=== PATIENT | female | born 1945 | race Caucasian/White ===

== ENCOUNTER 2016-08-30 06:30 | Inpatient (IN) | payer MEDICARE, MEDICAID ==
[~2016-08-30] VITALS: Ht 167.6 cm; Wt 72.6 kg
[2016-08-30] VITALS (11 sets, daily range): BP systolic 105–133; BP diastolic 63–82
--- NOTE | 2016-08-30 04:47 | History and Physical Report ---
DATE OF ADMISSION: 08/30/2016 CHIEF COMPLAINT: Degenerative fibroid lower abdominal pain and involuntary loss of urine . HISTORY OF PRESENT ILLNESS: The patient is a 71-year-old with lower abdominal pain, especially with standing. An ultrasound on exam, she has multiple degenerative fibroids. She was counseled extensively that she can use pain medications, explained that fibroid uterus at her age may or may not be the cause of her pain. However, she would like to have total hysterectomy, bilateral salpingo-oophorectomy. Otherwise, her workup is complete and no other abnormalities were found to account for the pain. PAST SURGICAL HISTORY: None. ALLERGIES: None. SOCIAL HISTORY: The patient does not drink or smoke. She is an occasional social drinker. PHYSICAL EXAMINATION: HEAD AND NECK: Pupils are equally reactive to light. LUNGS: Clear to auscultation bilaterally. CARDIAC: Regular rate and rhythm, within normal limits. BREASTS: No dominant masses. No axillary adenopathy. ABDOMEN: Soft, nondistended, and nontender. Bimanual exam consistent with a 12-week fibroid uterus. Adnexa, not palpable. RECTAL: No masses. EXTREMITIES: No clubbing. No cyanosis. No edema. IMAGING STUDIES: Ultrasound on 04/2016 consistent with multiple fibroids 3 x 3, 4.5 x 3.5 and smaller. Bilateral ovaries within normal limits. ASSESSMENT: The patient is a 71-year-old with uterine fibroids, some of them appear to be degenerating and lower abdominal pain as well as urinary incontinence. PLAN: Plan is for total abdominal hysterectomy and bilateral salpingo-oophorectomy with bladder suspension (sling?) to be performed by Dr. Hopson. Stella Luu M.D. DR: CHEMO JOB#: [id number] CC: DEANNA
[2016-08-30] MEDS ORDERED: DIOVAN80 MG ORAL (06:58)
[2016-08-30] MEDS ORDERED: METOPROLOL TART25 MG ORAL (06:58)
[2016-08-30] MEDS ORDERED: cefOXitin Sod 1 GM in D5W 55 ML IVPB ONE (08:00)
--- NOTE | 2016-08-30 08:59 | Anethesia Preoperative Eval ---
Anesthesia Pre-op PMH/ROS General Date of Evaluation: Aug 30, 2016 Time of Evaluation: 09:27 Anesthesiologist: Velma ASA Score: ASA 2 Mallampati Score Class I : Soft palate, uvula, fauces, pillars visible Class II: Soft palate, uvula, fauces visible Class III: Soft palate, base of uvula visible Class IV: Only hard plate visible Mallampati Classification: Class II Surgeon: Ailyn Diagnosis: Abd Pain Surgical Procedure: CONNIE BSO, Vaginal Sling, Rectocele, Cystocele Repair Anesthesia History: none Family History: no anesthesia problems Allergies: Coded Allergies: CELECOXIB (Verified Allergy, Severe, rashes, 08/30/16) LEVOFLOXACIN (Verified Allergy, Severe, RASHES , 08/30/16) Medications: see eMAR Past Medical History Cardiovascular: Reports: HTN Gastrointestinal/Genitourinary: Reports: other - Fibroids PSxH Narrative: Laparoscopic Cholecystectomy Anesthesia Pre-op Phys. Exam Physician Exam Last Vital Signs Date Time Temp Pulse Resp B/P Pulse Ox O2 Delivery O2 Flow Rate FiO2 08/30/16 07:08 97.9 90 18 131/81 99 Room Air Constitutional: NAD Neurologic: CN 2-12 intact Cardiovascular: RRR Respiratory: CTA Gastrointestinal: S/NT/ND Airway Exam Mallampati Score: Class II MO: full ROM: full Teeth: intact Anesthesia Pre-op A/P Risk Assessment & Plan Assessment: ASA 2 Plan: GA, Spinal, Glidescope, BIS Status Change Before Surgery: No Pre-Antibiotics Dru Gram Cefoxitin IV Given Within 1 Hr of Incision: Yes Time Given: 10:01 Luciano Carreon MD Aug 30, 2016 08:59
--- NOTE | 2016-08-30 09:08 | Pre-Procedure Note/Attestation ---
Pre-Procedure Note/Attestation Complete Prior to Procedure Planned Procedure: not applicable Procedure Narrative: Cystocele and rectocele repair vaginal sling cystoscopy Indications for Procedure Pre-Operative Diagnosis: vaginal prolapce incontinence Attestation I attest that I discussed the nature of the procedure; its benefits; risks and complications; and alternatives (and the risks and benefits of such alternatives ), prior to the procedure, with the patient (or the patient's legal medical field representative). I attest that, if there was a reasonable possibility of needing a blood transfusion, the patient (or the patient's legal medical field representative) was given the [facility] standardized written summary, pursuant to the Evan Sandra Blood Safety Act ([place] Health and Safety Code # 1645, as amended). I attest that I re-evaluated the patient just prior to the surgery and that there has been no change in the patient's H&P, except as documented below: Cali Hopson MD Aug 30, 2016 09:09
--- NOTE | 2016-08-30 09:10 | Brief Operative Note ---
Immediate Post Operative Note Operative Note Pre-op Diagnosis: vaginal prolapce incontinence Procedure: cystocele and rectocele repair vaginal sling cystoscopy Post-op Diagnosis: same Post-op Diagnosis: same as pre-op Surgeon: Nas hopson Specimen: none Complications: none Condition: stable Implant(s) used?: No Cali Hopson MD Aug 30, 2016 09:10
[2016-08-30] MEDS ORDERED: cefOXitin 1gm Inj ONE (09:21)
[2016-08-30] MEDS ORDERED: Ropivacaine 2mg/ml Amp INJ ONE (09:21)
[2016-08-30] MEDS ORDERED: Morphine Sulfate PF 10 ML ONE (09:21)
[2016-08-30] MEDS ORDERED: Ropivacaine 5mg/ml Vial 20ml INJ ONE (09:28)
[2016-08-30] MEDS ORDERED: Surgicel 4in x 8in TOPIC ONE ×2 (09:28→09:43)
[2016-08-30] MEDS ORDERED: LR 1000ml 1,000 ML IVLG SCH (09:36)
--- NOTE | 2016-08-30 09:38 | Pre-Procedure Note/Attestation ---
Pre-Procedure Note/Attestation Complete Prior to Procedure Planned Procedure: bilateral Procedure Narrative: total abdominal hysterectomy, bilateral salpingoopherectomy Indications for Procedure Pre-Operative Diagnosis: degenerating fibroids Attestation I attest that I discussed the nature of the procedure; its benefits; risks and complications; and alternatives (and the risks and benefits of such alternatives ), prior to the procedure, with the patient (or the patient's legal hr representative). I attest that, if there was a reasonable possibility of needing a blood transfusion, the patient (or the patient's legal hr representative) was given the [facility] standardized written summary, pursuant to the Evan Sandra Blood Safety Act ([place] Health and Safety Code # 1645, as amended). I attest that I re-evaluated the patient just prior to the surgery and that there has been no change in the patient's H&P, except as documented below: MALI CABRERA Aug 30, 2016 09:38
--- NOTE | 2016-08-30 09:41 | Immediate Post-Op Evaluation ---
Immediate Post-Op Evalulation Immediate Post-Op Evalulation Procedure: CONNIE BSO, Vaginal Sling, Rectocele, Cystocele Repair Date of Evaluation: Aug 30, 2016 Time of Evaluation: 12:29 IV Fluids: 1400 LR Blood Products: 0 Estimated Blood Loss: 50 Urinary Output: 200 Blood Pressure Systolic: 128 Blood Pressure Diastolic: 72 Pulse Rate: 97 Respiratory Rate: 16 O2 Sat by Pulse Oximetry: 100 Temperature (Fahrenheit): 98 Pain Score (1-10): 2 Nausea: No Vomiting: No Complications 0 Patient Status: awake, reacts, patent, extubated, none Hydration Status: adequate Dru Gram Cefoxitin IV Given Within 1 Hr of Incision: Yes Time Given: 10:01 Luciano Carreon MD Aug 30, 2016 09:41
--- NOTE | 2016-08-30 09:42 | 48 Hour Post Anesthesia Eval ---
Post Anesthesia Evaluation Procedure: CONNIE BSO, Vaginal Sling, Rectocele, Cystocele Repair Date of Evaluation: Aug 30, 2016 Time of Evaluation: 14:51 Blood Pressure Systolic: 134 0: 73 Pulse Rate: 91 Respiratory Rate: 18 Temperature (Fahrenheit): 98.4 O2 Sat by Pulse Oximetry: 100 Airway: patent Nausea: No Vomiting: No Pain Intensity: 2 Hydration Status: adequate Cardiopulmonary Status: Stable Mental Status/LOC: patient returned to baseline Follow-up Care/Observations: 0 Post-Anesthesia Complications: 0 Follow-up care needed: N/A Luciano Carreon MD Aug 30, 2016 09:41
[2016-08-30] MEDS ORDERED: Bupivacaine w/Epi 0.25% 30ml Vial INJ ONE (09:43)
[2016-08-30] MEDS ORDERED: Meperidine 25mg/ml Inj IV PRN (09:45)
[2016-08-30] MEDS ORDERED: Oxycodone/Acetaminophen 5-325 ORAL PRN (09:45)
[2016-08-30] MEDS ORDERED: LORazepam Inj 2mg/ml 1ml IV PRN (09:45)
[2016-08-30] MEDS ORDERED: Metoclopramide 10mg/2ml Inj IVP PRN (09:45)
[2016-08-30] MEDS ORDERED: Midazolam 2mg/2ml Inj IVP PRN (09:45)
[2016-08-30] MEDS ORDERED: Atropine Inj 1mg/10ml Syr IV PRN (09:45)
[2016-08-30] MEDS ORDERED: Labetalol 5mg/ml 20ml vial IV PRN (09:45)
[2016-08-30] MEDS ORDERED: DiphenhydrAMINE 50mg/ml Inj IVP PRN (09:45)
[2016-08-30] MEDS ORDERED: Norco 5mg/325mg tab ORAL PRN (09:45)
[2016-08-30] MEDS ORDERED: fentaNYL 100 mcg/2 mL IV PRN (09:45)
[2016-08-30] MEDS ORDERED: Norco 7.5mg/325mg tab ORAL PRN (09:45)
[2016-08-30] MEDS ORDERED: ProvayBlue 5mg/ml 10ml amp INJ ONE (10:00)
[2016-08-30] MEDS ORDERED: Bacitracin 50000 Units Vial ONE (11:21)
--- NOTE | 2016-08-30 11:41 | Brief Operative Note ---
Immediate Post Operative Note Operative Note Chief Complaint: sumptomatic fibroid Pre-op Diagnosis: symptomatic fibroid Procedure: CONNIE BSO Post-op Diagnosis: same as pre-op Surgeon: Stella salgado MD Grinder Hand: Marlo alexander MD Anesthesiologist: Luciano Carreon MD Anesthesia: general Specimen: yes - uterus bilateral adnexea Complications: none Condition: stable Estimated Blood Loss: volume - 50 Drains: none Implant(s) used?: No MARLO ALEXANDER Aug 30, 2016 11:41
[2016-08-30] MEDS: Hydromorphone 0.5mg/0.5ml inj IVP PRN ×3 (12:40→13:24)
[2016-08-30] MEDS ORDERED: HYDROmorphone 1mg/ml Carpuject SUBQ PRN (16:00)
[2016-08-30] MEDS: D5 1/2NS w/KCl 20mEq 1,000 ML IV SCH (17:34)
[2016-08-30] MEDS: ceFAZolin sod 1 GM in D5W 55 ML IV SCH (17:35)
[2016-08-30] MEDS: Docusate 100mg cap ORAL SCH (17:36)
[2016-08-31] MEDS: Ketorolac 30mg Inj IV PRN ×4 (01:08→19:58)
[2016-08-31] MEDS: ceFAZolin sod 1 GM in D5W 55 ML IV SCH (02:03)
[2016-08-31] MEDS: D5 1/2NS w/KCl 20mEq 1,000 ML IV SCH ×3 (02:07→08:00)
[2016-08-31 05:01] VITALS: BP 102/57
[2016-08-31 07:19] LABS: BASOPHILS % (AUTO) 0.2 % (0.0-2.0); LYMPHOCYTES % (AUTO) 11.5 % (20.0-45.0); MEAN CORPUSCULAR HGB CONC 32.9 G/DL (32.0-36.0); MEAN CORPUSCULAR VOLUME 82 FL (80-99); MEAN PLATELET VOLUME 7.6 FL (6.5-10.1); NEUTROPHILS % (AUTO) 79.3 % (45.0-75.0); PLATELET COUNT 194 K/UL (150-450); RED BLOOD COUNT 4.25 M/UL (4.20-5.40); RED CELL DISTRIBUTION WIDTH 11.8 % (11.6-14.8); WHITE BLOOD COUNT 12.4 K/UL (4.8-10.8)
[2016-08-31] MEDS ORDERED: Propofol 10mg/ml 20ml IV ONE (07:30)
[2016-08-31] MEDS ORDERED: Neostigmine 1mg/ml 10ml Inj ONE (07:30)
[2016-08-31] MEDS ORDERED: LR 1000ml ONE (07:30)
[2016-08-31] MEDS ORDERED: Lidocaine 1% MPF 10mg/ml 5ml ONE (07:30)
[2016-08-31] MEDS ORDERED: Dexamethasone 4mg/ml vial ONE (07:30)
[2016-08-31] MEDS ORDERED: Midazolam 2mg/2ml Inj ONE (07:30)
[2016-08-31] MEDS ORDERED: Sterile Water Irrig 1000ml IRRIG ONE (07:30)
[2016-08-31] MEDS ORDERED: NS Irrig 1000ml ONE (07:30)
[2016-08-31] MEDS ORDERED: Alfentanil 2ml Inj ONE (07:30)
[2016-08-31] MEDS ORDERED: Zemuron 50mg/5ml Inj IV ONE (07:30)
[2016-08-31] MEDS ORDERED: Glycopyrrolate 0.2mg/ml 1ml Vial ONE (07:30)
[2016-08-31 07:46] LABS: ANION GAP 10 (5-15); CARBON DIOXIDE 27 mEQ/L (20-30); CHLORIDE 101 mEQ/L (98-107); CREATININE 0.7 mg/dL (0.5-0.9); HEMOLYSIS 5; POTASSIUM 4.7 mEQ/L (3.4-4.9); SODIUM 138 mEQ/L (135-145)
[2016-08-31 08:00] VITALS: BP 101/65
[2016-08-31] MEDS: Metoprolol 25mg tab ORAL SCH (09:00)
[2016-08-31] MEDS: Docusate 100mg cap ORAL SCH ×2 (09:21→19:19)
--- NOTE | 2016-08-31 10:23 | General Surgery Progress Note ---
General Surgery-Progress Note Subjective Symptoms: improved, tolerating diet Objective Last 24 Hour Vital Signs Date Time Temp Pulse Resp B/P Pulse Ox O2 Delivery O2 Flow Rate FiO2 08/31/16 09:00 101/65 08/31/16 09:00 88 101/65 08/31/16 08:00 97.9 88 18 101/65 96 Room Air 08/31/16 05:01 98.2 90 18 102/57 96 Nasal Cannula 3.0 08/30/16 14:30 97.5 73 16 114/65 97 Nasal Cannula 2.0 08/30/16 14:05 98.6 86 18 105/63 98 Nasal Cannula 3.0 08/30/16 13:50 81 18 129/63 98 Nasal Cannula 3.0 08/30/16 13:46 98.4 08/30/16 13:46 98.4 08/30/16 13:41 87 18 110/63 98 Nasal Cannula 3.0 08/30/16 13:24 79 18 118/74 98 Simple Mask 8.0 08/30/16 12:55 76 18 124/75 98 Simple Mask 8.0 100 08/30/16 12:40 77 18 133/75 98 Simple Mask 8.0 100 08/30/16 12:28 99 18 132/75 100 Simple Mask 8.0 100 08/30/16 12:23 75 18 128/74 100 Simple Mask 8.0 100 08/30/16 12:21 91 18 100 08/30/16 12:20 97 16 100 08/30/16 12:18 98.0 99 18 129/82 100 Simple Mask 8.0 100 I&O Intake and Output 08/30/16 08/31/16 19:00 07:00 Intake Total 2525 ml 990 ml Output Total 450 ml 450 ml Balance 2075 ml 540 ml Intake Oral 240 ml IV Total 2525 ml 750 ml Output Urine Total 400 ml 450 ml Estimated Blood Loss 50 ml # Voids 1 Wound: clean, dry, intact Drains: none Cardiovascular: RSR Respiratory: clear Abdomen: soft, flat, non-tender, present bowel sounds Extremities: no edema, no tenderness, no cyanosis Laboratory Tests Test 08/31/16 06:35 White Blood Count 12.4 K/UL (4.8-10.8) H Red Blood Count 4.25 M/UL (4.20-5.40) Hemoglobin 11.5 G/DL (12.0-16.0) L Hematocrit 34.8 % (37.0-47.0) L Mean Corpuscular Volume 82 FL (80-99) Mean Corpuscular Hemoglobin 27.0 PG (27.0-31.0) Mean Corpuscular Hemoglobin Concent 32.9 G/DL (32.0-36.0) Red Cell Distribution Width 11.8 % (11.6-14.8) Platelet Count 194 K/UL (150-450) Mean Platelet Volume 7.6 FL (6.5-10.1) Neutrophils (%) (Auto) 79.3 % (45.0-75.0) H Lymphocytes (%) (Auto) 11.5 % (20.0-45.0) L Monocytes (%) (Auto) 9.0 % (1.0-10.0) Eosinophils (%) (Auto) 0.0 % (0.0-3.0) Basophils (%) (Auto) 0.2 % (0.0-2.0) Sodium Level 138 mEQ/L (135-145) Potassium Level 4.7 mEQ/L (3.4-4.9) Chloride Level 101 mEQ/L (98-107) Carbon Dioxide Level 27 mEQ/L (20-30) Anion Gap 10 (5-15) Blood Urea Nitrogen 14 mg/dL (7-23) Creatinine 0.7 mg/dL (0.5-0.9) Estimat Glomerular Filtration Rate mL/min (>60) Glucose Level 124 mg/dL (74-106) H Calcium Level 9.0 mg/dL (8.6-10.2) Assessment Post-op Diagnosis s/p hysterectomy BSO/ sling Additional Comments keep Wolfe/ regular diet MALI CABRERA Aug 31, 2016 10:23
[2016-08-31] MEDS ORDERED: DiphenhydrAMINE 50mg/ml Inj IVP PRN (10:30)
[2016-08-31 12:00] VITALS: BP 108/66
[2016-08-31 16:00] VITALS: BP 107/68
[2016-08-31 19:00] VITALS: BP 122/80
[2016-08-31] MEDS ORDERED: Oxycodone/Acetaminophen 5-325 ORAL PRN (21:15)
[2016-08-31] MEDS ORDERED: Ketorolac 30mg Inj IV PRN (21:45)
[2016-09-01] MEDS ORDERED: HYDROmorphone 1mg/ml Carpuject SUBQ PRN (01:00)
[2016-09-01] MEDS ORDERED: Oxycodone/Acetaminophen 5-325 ORAL PRN (01:15)
[2016-09-01] MEDS ORDERED: Ketorolac 30mg Inj IV PRN (02:30)
[2016-09-01 04:00] VITALS: BP 129/80
[2016-09-01 08:00] VITALS: BP 134/84
[2016-09-01] MEDS: Docusate 100mg cap ORAL SCH (09:36)
[2016-09-01] MEDS: Metoprolol 25mg tab ORAL SCH (09:37)
[2016-09-01 12:00] VITALS: BP 121/76
[2016-09-01] MEDS ORDERED: PERCOCET 5-3251 EACH ORAL (12:22)
[2016-09-01] MEDS ORDERED: IBUPROFEN600 MG ORAL (12:23)
--- NOTE | 2016-09-04 07:45 | Discharge Summary ---
[facility] ([facility])Nneka TRISHA 09/04/16 0745: Discharge Summary Hospital Course Date of Admission Aug 30, 2016 at 06:30 Date of Discharge Sep 01, 2016 at 14:40 Admitting Diagnosis symptomatic fibroid, uterine prolapse Reason for Hospitalization: elective surgery HPI Chelsea Powell , 71 year old female , was admitted on Aug 30, 2016 at 06:30 for symptomatic uterine fibroid and urinary prolapse for elective surgery Consultations dr Combs - urology surgeon dr Holt - RN CORRECTIONAL surgery Procedures 08/30/16 1. hysterectomy, BSO, cystocele and rectocele repair, cystoscopy, vaginal sling Hospital Course 71 y/old female with symptomatic fibroid and urinary incontinence, cystocele and rectocele admitted for elective surgery Surgery was performed on 08/30/16 1. hysterectomy, bilateral salpingo-oophorectomy - dr Holt 2. cystocele adn rectocele repair, cystoscopy, vaginal sling - dr Hopson course of recovery was uneventful pain controlled ambulates initially with Wolfe discontinued Wolfe, rukhsana to void, without difficulties tolerates diet VSS BP controlled with current regimen stable fro dc, cleared by both surgeons fup as outpatient with dr Luu and dr Hopson as specified in their instructions to the patient Discharge Medications Continued Medications: Ibuprofen* (Motrin*) 600 Mg Tablet 600 MG ORAL Q6H PRN for For Pain, #30 TAB Metoprolol Tartrate* (Metoprolol Tartrate*) 25 Mg Tablet 25 MG ORAL DAILY, TAB Oxycodone/Acetaminophen 5-325* (Percocet 5-325 Mg Tablet*) 1 Each Tablet 1 TAB ORAL Q4H PRN for For Pain, TAB Valsartan (Diovan) 80 Mg Tab 80 MG ORAL DAILY, TAB Discharge Condition Upon Discharge: stable Discharge Disposition Patient was discharged to Home (01) Discharge Diagnoses: (1) Status post hysterectomy with oophorectomy (2) S/P cystoscopy (3) Urinary incontinence (4) Rectocele (5) Cystocele (6) HTN (hypertension) (7) Fibroid (8) Vaginal prolapse MALI LUU 10/13/16 0754: Discharge Summary Hospital Course Consultations surgery was performed by dr Luu/ dr Holt was an orthopaedic physician assistant Discharge Medications Continued Medications: Ibuprofen* (Motrin*) 600 Mg Tablet 600 MG ORAL Q6H PRN for For Pain, #30 TAB Metoprolol Tartrate* (Metoprolol Tartrate*) 25 Mg Tablet 25 MG ORAL DAILY, TAB Oxycodone/Acetaminophen 5-325* (Percocet 5-325 Mg Tablet*) 1 Each Tablet 1 TAB ORAL Q4H PRN for For Pain, TAB Valsartan (Diovan) 80 Mg Tab 80 MG ORAL DAILY, TAB Alberto ([facility]),Nneka RICO Sep 04, 2016 07:45 MALI LUU Oct 13, 2016 07:54
--- NOTE | 2016-09-04 15:57 | Operative Note - Dictated ---
DATE OF OPERATION: 08/30/2016 PROCEDURE: Total abdominal hysterectomy and bilateral salpingo-oophorectomy. SURGEON: Stella Luu M.D. CAUSTICS LOADER: Marlo Holt M.D. ANESTHESIA: General endotracheal, spinal. ESTIMATED BLOOD LOSS: 50 mL. COMPLICATIONS: None. PROCEDURE IN DETAIL: After ensuring informed consent, the patient was taken to the operating room, where general anesthesia was induced. The patient was sterilely prepped and draped, and placed in dorsal lithotomy position. A small low transverse incision was made suprapubically and carried down to the level of the fascia with a Bovie. The fascia was nicked in the midline and the incision was extended laterally on both sides. Next, the fascia was tented up and both bluntly and sharply dissected off of the underlying rectus muscles. Rectus muscles were split in the midline. Peritoneum was identified, tented up, and entered sharply. Next, the pelvis was explored. There was a large fibroid uterus and bilateral normal tubes and ovaries. Next, Tan retractor was placed, and bowel was packed away with three laps. Next, uterus was grasped with a tenaculum, round ligament was identified on the right side, grasped with Wing's, transected, and suture ligated. Next, this was repeated on the left side. Vesicouterine peritoneum was entered and bladder was both sharply and bluntly resected off of the lower uterine segment and cervix. Next, the window was made in the right broad ligament. A Fercho clamp x2 was placed through the window on the right side, and the infundibulopelvic ligament was skeletonized, grasped with two Fercho's, resected, and the left pedicle was doubly ligated on the right side. Next, similar procedure was repeated on the left. Mainly, infundibulopelvic was skeletonized. Here, a window being made in the broad ligament, grasped with 2 Fercho clamps, transected, and doubly ligated. Next, the uterine artery on the left was skeletonized, grasped with a slightly curved Zeppelin, tagged, and suture ligated. Then, the uterine on the right side was also transected and ligated. Next, vesicouterine peritoneum was further removed from the cervix and using straight Zeppelin clamp, the cardinal ligament was grasped, cut, and suture ligated lateral to the cervix until the lateral angle was reached, which was grasped with a curved Zeppelin. Then, a cut was made into the vagina and cervix where the uterus was amputated using Thomas scissors. Both vaginal angles were grasped and ligated. Next, vagina was closed using 0 Vicryl. All pedicles were inspected, and excellent hemostasis was assured. Pelvis was irrigated. Laps were removed. Next, peritoneum was closed with 2.0 Vicryl. Fascia was closed with 0 Vicryl. Subcutaneous tissue was closed with 3-0 plain. Subcuticular was closed with 4-0 Vicryl and Steri-Strips were placed on the incision. At the end of the procedure, all instruments and lap count was correct x3. Stella Luu M.D. DR: TORO JOB#: [id number] CC: DEANNA
--- NOTE | 2016-09-04 22:07 | Operative Note - Dictated ---
DATE OF OPERATION: 08/30/2016 PREOPERATIVE DIAGNOSES: 1. Vaginal prolapse. 2. Enlarged uterus. 3. Stress and urge incontinence. OPERATION: 1. Transvaginal cystocele repair. 2. Rectocele repair. 3. Vaginal wall sling cystoscopy. POSTOPERATIVE DIAGNOSES: 1. Vaginal prolapse. 2. Enlarged uterus. 3. Stress and urge incontinence. SURGEON: Cali Hopson M.D. ANESTHESIA: General. FINDINGS: Prolapsed vaginal urethra. INDICATIONS FOR SURGERY: The patient has severely enlarged uterine fibroids and was scheduled for hysterectomy combined with transvaginal cystocele repair, rectocele repair, and vaginal sling. The patient understands the nature of the procedure as well as all potential complications, signed a consent. She was brought to the operating room, placed in the lithotomy position, and prepped and draped in standard fashion under general anesthesia. Anterior incision was made. The vagina was from the bladder. Pubocervical muscles were reapproximated with interrupted 2-0 Vicryl sutures reducing central defect . A mid urethral sling was placed in the left indwelling with non tension. Rectocele repair was repaired in the standard fashion with the reapproximation of the perirectal fascia with interrupted 2-0 Vicryl sutures. Vagina was trimmed and closed. Cystoscopy was normal. Sponge count and instrument count was correct. Vaginal packing. The patient transferred to the recovery room in a stable condition. No evidence of complication. Cali Hopson M.D. DR: TRACY JOB#: [id number] CC:
== END 2016-09-01 14:40 | disposition home or self-care (01) | DRG 743 ==
LOC: SDSOVERFLO 06:30 → 3E 15:33
PROC: 0USG0ZZ Reposition Vagina, Open Approach (ICD-10-PCS; principal; 2016-08-30 09:30)
PROC: 0UT70ZZ Resection of Bilateral Fallopian Tubes, Open Approach (ICD-10-PCS; principal; 2016-08-30 09:30)
PROC: 0UT90ZZ Resection of Uterus, Open Approach (ICD-10-PCS; principal; 2016-08-30 09:30)
PROC: 0UTC0ZZ Resection of Cervix, Open Approach (ICD-10-PCS; principal; 2016-08-30 09:30)
PROC: 0JQC0ZZ Repair Pelvic Region Subcutaneous Tissue and Fascia, Open Approach (ICD-10-PCS; principal; 2016-08-30 09:30)
PROC: 0UT20ZZ Resection of Bilateral Ovaries, Open Approach (ICD-10-PCS; principal; 2016-08-30 09:30)
DX: D25.9 Leiomyoma of uterus, unspecified (principal); I10 Essential (primary) hypertension; N81.10 Cystocele, unspecified; N81.6 Rectocele; R32 Unspecified urinary incontinence
CPT/HCPCS: 36415; 80048; 85025; 86850; 86900; 86901; 87081; 94003; 94150; J2180; J2250; J2405; J2710; J3490

== ENCOUNTER → 2017-04-18 | Day surgery (SDC) | payer MEDICARE, MEDICAID ==
[2017-04-18] VITALS (9 sets, daily range): BP systolic 123–140; BP diastolic 78–86
[~2017-04-18] VITALS: Ht 162.6 cm; Wt 76.2 kg
[~2017-04-18] MED LIST: BYSTOLIC2.5 MG ORAL; D5 1/2NS 1,000 ML IV SCH; DIOVAN80 MG ORAL; Dexamethasone 4mg/ml vial ONE; DiphenhydrAMINE 50mg/ml Inj IVP PRN; ELMIRON100 MG ORAL; HYDROmorphone 1mg/ml Carpuject SUBQ PRN; Hydromorphone 0.5mg/0.5ml inj IVP PRN; IBUPROFEN600 MG ORAL; Iothalamate Meglumine 60% 30ML INJ ONE; Ketorolac 30mg Inj ONE; LORazepam Inj 2mg/ml 1ml IV PRN; LR 1000ml 1,000 ML IVLG SCH; LR 1000ml ONE; Lidocaine 1% MPF 10mg/ml 5ml ONE; METOPROLOL TART25 MG ORAL; Metoclopramide 10mg/2ml Inj IVP PRN; Metoclopramide 10mg/2ml Inj ONE; NITROFURANTOIN100 MG PO; NS Irrig 1000ml ONE; NS Irrig 2000ml IRRIG ONE; Norco 5mg/325mg tab ORAL PRN; PERCOCET 5-3251 EACH ORAL; Propofol 200mg/20ml IV ONE; Sterile Water Irrig 1000ml IRRIG ONE; Tylenol #3 tab (300mg/30mg) ORAL PRN; ceFAZolin 1gm/50ml Premix 50 ML IV ONE; fentaNYL 100 mcg/2 mL IV ONE; fentaNYL 100 mcg/2 mL IV PRN
--- NOTE | 2017-04-18 12:40 | Pre-Procedure Note/Attestation ---
Pre-Procedure Note/Attestation Complete Prior to Procedure Planned Procedure: left Procedure Narrative: RIRS ESWL Stent placement Indications for Procedure Pre-Operative Diagnosis: left renal stone Attestation I attest that I discussed the nature of the procedure; its benefits; risks and complications; and alternatives (and the risks and benefits of such alternatives ), prior to the procedure, with the patient (or the patient's legal customer counter representative). I attest that, if there was a reasonable possibility of needing a blood transfusion, the patient (or the patient's legal customer counter representative) was given the [facility] standardized written summary, pursuant to the Evan Sandra Blood Safety Act ([place] Health and Safety Code # 1645, as amended). I attest that I re-evaluated the patient just prior to the surgery and that there has been no change in the patient's H&P, except as documented below: Cali Hopson MD Apr 18, 2017 12:40
--- NOTE | 2017-04-18 13:14 | Anethesia Preoperative Eval ---
Anesthesia Pre-op PMH/ROS General Date of Evaluation: Apr 18, 2017 Anesthesiologist: Mikal ASA Score: ASA 2 Mallampati Score Class I : Soft palate, uvula, fauces, pillars visible Class II: Soft palate, uvula, fauces visible Class III: Soft palate, base of uvula visible Class IV: Only hard plate visible Mallampati Classification: Class II Surgeon: Mark Anthony Diagnosis: Kidney stones Surgical Procedure: Left ESWL, left retrograde intrarenal sx, left ureter stent placement Anesthesia History: none Family History: no anesthesia problems Allergies: Coded Allergies: CELECOXIB (Verified Allergy, Severe, rashes, 08/30/16) LEVOFLOXACIN (Verified Allergy, Severe, RASHES , 08/30/16) Medications: see eMAR Past Medical History Cardiovascular: Reports: HTN, other - HLD, Denies: CAD, SD, valve dz, arrhythmia Pulmonary: Denies: asthma, COPD, SHARDA, other Gastrointestinal/Genitourinary: Reports: GERD, Denies: CRI, ESRD, other Neurologic/Psychiatric: Denies: dementia, CVA, depression/anxiety, TIA, other Endocrine: Denies: DM, hypothyroidism, steroids, other HEENT: Denies: cataract (L), cataract (R), glaucoma, [place] (L), [place] (R), other Hematology/Immune: Denies: anemia, DVT, bleeding disorder, other Musculoskeletal/Integumentary: Reports: OA PSxH Narrative: lap arun, lap appy, CONNIE, bladder sling Anesthesia Pre-op Phys. Exam Physician Exam Last Vital Signs Date Time Temp Pulse Resp B/P (MAP) Pulse Ox O2 Delivery O2 Flow Rate FiO2 04/18/17 11:02 97.7 82 20 127/86 97 Room Air Constitutional: NAD Cardiovascular: RRR Respiratory: CTA Airway Exam Mallampati Score: Class II MO: full ROM: full Anesthesia Pre-op A/P Labs see chart Studies Pre-op Studies: EKG - sr Risk Assessment & Plan Assessment: ASA II Plan: GA Status Change Before Surgery: No Pre-Antibiotics Drug: Anceg 1g Given Within 1 Hr of Incision: Yes SHERRI CHARLES M.D. Apr 18, 2017 13:14
--- NOTE | 2017-04-18 13:18 | Immediate Post-Op Evaluation ---
Immediate Post-Op Evalulation Immediate Post-Op Evalulation Procedure: Left ESWL, left ureter stent placement Date of Evaluation: Apr 18, 2017 Time of Evaluation: 14:46 IV Fluids: 1L Blood Products: 0 Estimated Blood Loss: 1 Urinary Output: 0 Blood Pressure Systolic: 124 Blood Pressure Diastolic: 78 Pulse Rate: 73 Respiratory Rate: 16 O2 Sat by Pulse Oximetry: 100 Temperature (Fahrenheit): 97.3 Pain Score (1-10): 0 Nausea: No Vomiting: No Complications 0 Patient Status: awake, reacts, patent, none Hydration Status: adequate Drug: Ancef 1g Given Within 1 Hr of Incision: Yes SHERRI CHARLES M.D. Apr 18, 2017 13:18
--- NOTE | 2017-04-18 13:18 | 48 Hour Post Anesthesia Eval ---
Post Anesthesia Evaluation Procedure: Left ESWL, left ureter stent placement Date of Evaluation: Apr 18, 2017 Airway: patent Nausea: No Vomiting: No Pain Intensity: 1 Hydration Status: adequate Cardiopulmonary Status: at baseline Mental Status/LOC: patient returned to baseline Post-Anesthesia Complications: 0 Follow-up care needed: ready to discharge SHERRI CHARLES M.D. Apr 18, 2017 13:18
--- NOTE | 2017-04-18 14:32 | Brief Operative Note ---
Immediate Post Operative Note Operative Note Pre-op Diagnosis: left renal stone Procedure: ESWL RIRS left stent placement Post-op Diagnosis: same Post-op Diagnosis: same as pre-op Anesthesia: general Specimen: none Complications: none Condition: stable Fluids: 500 Estimated Blood Loss: minimal Drains: none Implant(s) used?: No Cali Hopson MD Apr 18, 2017 14:32
--- NOTE | 2017-04-24 07:15 | Operative Note - Dictated ---
DATE OF OPERATION: 04/18/2017 PREOPERATIVE DIAGNOSIS: Left ureteral stone. POSTOPERATIVE DIAGNOSIS: Left ureteral stone. OPERATION: Extracorporeal shock wave lithotripsy of the left renal stone combined with retrograde intrarenal surgery, double J-stent placement. SURGEON: Cali Hopson M.D. ANESTHESIA: General. FINDINGS: Left renal stone. INDICATIONS FOR SURGERY: The patient had intermittent pain in the left flank. A CT urogram twice showed a 7 mm stone in the upper calyx of the left kidney. Treatment options were explained to her in great length including all potential complications. She signed the consent. DESCRIPTION OF PROCEDURE: She was brought to the operating room, placed in lithotomy position, prepped and draped in standard fashion. Under general anesthesia, cystoscope was introduced into the bladder. Bladder was normal. Left ureter was strangulated. Then, guidewire was placed into the left kidney. Over the guidewire, a flexible ureteroscope was placed and stone was found in the ureteral upper calyx of the left kidney. Left extracorporeal shockwave lithotripsy was done and the stone was slightly fragmented in multiple shocks, with 2000 shocks at 9 kilovolts. As a result, a double J stent, 24 x 6, was placed and left indwelling. The patient tolerated the procedure well. Sponge count and instrument count was correct. Cali Hopson M.D. DR: Nicole JOB#: [id number] CC: DEANNA
== END | disposition home or self-care (01) ==
LOC: SUR 10:17
DX: N20.0 Calculus of kidney (principal)
CPT/HCPCS: 50590; 52332; J0690; J1100; J1885; J1940; J2405; J2704; J2765; J3010; J7120; 94003; 94150

== ENCOUNTER 2018-03-06 07:30 | Inpatient (IN) | payer MEDICARE, MEDICAID ==
[2018-03-06] VITALS (17 sets, daily range): BP systolic 97–164; BP diastolic 60–95
[~2018-03-06] VITALS: Ht 167.6 cm; Wt 71.7 kg
[~2018-03-06 07:30] MED LIST changes: -D5 1/2NS 1,000 ML IV SCH; -Dexamethasone 4mg/ml vial ONE; -DiphenhydrAMINE 50mg/ml Inj IVP PRN; -HYDROmorphone 1mg/ml Carpuject SUBQ PRN; -Hydromorphone 0.5mg/0.5ml inj IVP PRN; -Iothalamate Meglumine 60% 30ML INJ ONE; -Ketorolac 30mg Inj ONE; -LORazepam Inj 2mg/ml 1ml IV PRN; -LR 1000ml 1,000 ML IVLG SCH; -LR 1000ml ONE; -Lidocaine 1% MPF 10mg/ml 5ml ONE; -Metoclopramide 10mg/2ml Inj IVP PRN; -Metoclopramide 10mg/2ml Inj ONE; -NS Irrig 1000ml ONE; -NS Irrig 2000ml IRRIG ONE; -Norco 5mg/325mg tab ORAL PRN; -Propofol 200mg/20ml IV ONE; -Sterile Water Irrig 1000ml IRRIG ONE; -Tylenol #3 tab (300mg/30mg) ORAL PRN; +ceFAZolin 1gm in D5W 55ml IVP ONE; -ceFAZolin 1gm/50ml Premix 50 ML IV ONE; -fentaNYL 100 mcg/2 mL IV ONE; -fentaNYL 100 mcg/2 mL IV PRN
--- NOTE | 2018-03-06 10:27 | Pre-Procedure Note/Attestation ---
Pre-Procedure Note/Attestation Complete Prior to Procedure Planned Procedure: not applicable Procedure Narrative: cystocele rectocele repair vaginal sling cystoscopy Indications for Procedure Pre-Operative Diagnosis: vaginal prolapce Attestation I attest that I discussed the nature of the procedure; its benefits; risks and complications; and alternatives (and the risks and benefits of such alternatives ), prior to the procedure, with the patient (or the patient's legal member services representative). I attest that, if there was a reasonable possibility of needing a blood transfusion, the patient (or the patient's legal member services representative) was given the [facility] standardized written summary, pursuant to the Evan Sandra Blood Safety Act ([place] Health and Safety Code # 1645, as amended). I attest that I re-evaluated the patient just prior to the surgery and that there has been no change in the patient's H&P, except as documented below: Cali Hopson MD Mar 06, 2018 10:26
[2018-03-06] MEDS ORDERED: EPINEPHrine 1mg/1ml Amp ONE (10:33)
[2018-03-06] MEDS ORDERED: Bupivacaine 0.5% Inj 30 ml vial INJ ONE ×2 (10:33→11:20)
[2018-03-06] MEDS ORDERED: NeoSporin Gu Irrig 1ml Amp IRRIG ONE ×2 (10:36→11:20)
[2018-03-06] MEDS ORDERED: Bacitracin 50000 Units Vial ONE (10:36)
[2018-03-06] MEDS ORDERED: fentaNYL 100 mcg/2 mL IV ONE (10:38)
[2018-03-06] MEDS ORDERED: Midazolam 2mg/2ml Inj ONE (10:38)
[2018-03-06] MEDS ORDERED: Propofol 200mg/20ml IV ONE (10:39)
[2018-03-06] MEDS ORDERED: Lidocaine 1% MPF 10mg/ml 5ml ONE (10:39)
[2018-03-06] MEDS ORDERED: NS Irrig 1000ml ONE (11:00)
[2018-03-06] MEDS ORDERED: LR 1000ml ONE (11:00)
[2018-03-06] MEDS ORDERED: Sterile Water Irrig 1000ml IRRIG ONE (11:00)
[2018-03-06] MEDS ORDERED: Bacitracin 50000 Units Vial IRRIG ONE (11:20)
[2018-03-06] MEDS ORDERED: EPINEPHrine 1mg/1ml Amp INJ ONE (11:20)
[2018-03-06] MEDS ORDERED: Ketorolac 30mg Inj ONE (11:26)
--- NOTE | 2018-03-06 11:33 | Anethesia Preoperative Eval ---
Anesthesia Pre-op PMH/ROS General Date of Evaluation: Mar 06, 2018 Time of Evaluation: 10:45 Anesthesiologist: Carmella ASA Score: ASA 2 Mallampati Score Class I : Soft palate, uvula, fauces, pillars visible Class II: Soft palate, uvula, fauces visible Class III: Soft palate, base of uvula visible Class IV: Only hard plate visible Mallampati Classification: Class II Surgeon: Mark Anthony Diagnosis: Urinary incontinence Surgical Procedure: Vaginal sling placement Anesthesia History: PONV Family History: no anesthesia problems Allergies: Coded Allergies: CELECOXIB (Verified Allergy, Severe, rashes, 08/30/16) LEVOFLOXACIN (Verified Allergy, Severe, RASHES , 08/30/16) Past Medical History Cardiovascular: Reports: HTN - stable; Denies: CAD, [place], valve dz, arrhythmia, other Pulmonary: Denies: asthma, COPD, SHARDA, other Gastrointestinal/Genitourinary: Reports: GERD - mild; Denies: CRI, ESRD, other Neurologic/Psychiatric: Denies: dementia, CVA, depression/anxiety, TIA, other Endocrine: Denies: DM, hypothyroidism, steroids, other HEENT: Denies: cataract (L), cataract (R), glaucoma, [place] (L), [place] (R), other Hematology/Immune: Reports: anemia - mild Musculoskeletal/Integumentary: Denies: OA, RA, DJD, DDD, edema, other PMH Narrative: as above PSxH Narrative: Hysterectomy Anesthesia Pre-op Phys. Exam Physician Exam Last Vital Signs Date Time Temp Pulse Resp B/P (MAP) Pulse Ox O2 Delivery O2 Flow Rate FiO2 03/06/18 10:26 98.1 100 20 164/95 (118) 99 98.1 03/06/18 10:11 Room Air Constitutional: NAD Neurologic: CN 2-12 intact Cardiovascular: RRR, no M/R/G Respiratory: CTA Gastrointestinal: S/NT/ND Airway Exam Mallampati Score: Class II MO: full Neck: flexible ROM: full Teeth: missing Dentures: upper, lower Anesthesia Pre-op A/P Labs see chart Studies Pre-op Studies: EKG - NSR Risk Assessment & Plan Assessment: ASA2 Plan: GA with LMA PONV prevention Status Change Before Surgery: No Pre-Antibiotics Drug: Vancomycin 500mg Given Within 1 Hr of Incision: Yes Time Given: 11:18 Malachi Weir MD Mar 06, 2018 11:33
[2018-03-06] MEDS ORDERED: LR 1000ml 1,000 ML IVLG SCH (11:34)
[2018-03-06] MEDS ORDERED: Ketorolac 30mg Inj IV PRN (11:45)
[2018-03-06] MEDS ORDERED: Midazolam 2mg/2ml Inj IVP PRN (11:45)
[2018-03-06] MEDS ORDERED: DiphenhydrAMINE 50mg/ml Inj IVP PRN (11:45)
[2018-03-06] MEDS ORDERED: Metoclopramide 10mg/2ml Inj IVP PRN (11:45)
[2018-03-06] MEDS ORDERED: Morphine Sulfate 2mg/ml Inj(IV/IM USE ONLY) IVP PRN (11:45)
[2018-03-06] MEDS ORDERED: Norco 5mg/325mg tab ORAL PRN (12:15)
--- NOTE | 2018-03-06 12:18 | Brief Operative Note ---
Immediate Post Operative Note Operative Note Pre-op Diagnosis: vaginal prolapce Procedure: cystocele rectocele repair vaginal sling cystoscopy Post-op Diagnosis: same Post-op Diagnosis: same as pre-op Surgeon: Nas Hopson Anesthesia: general Specimen: none Complications: none Condition: stable Fluids: 52102 Estimated Blood Loss: minimal Implant(s) used?: No Cali Hopson MD Mar 06, 2018 12:18
[2018-03-06] MEDS: fentaNYL 100 mcg/2 mL IV PRN ×2 (12:55→13:16)
[2018-03-06 13:37] LABS: BASOPHILS % (AUTO) 0.5 % (0.0-2.0); EOSINOPHILS % (AUTO) 0.3 % (0.0-3.0); HEMATOCRIT 37.3 % (37.0-47.0); LYMPHOCYTES % (AUTO) 17.1 % (20.0-45.0); MEAN CORPUSCULAR VOLUME 80 FL (80-99); MONOCYTES % (AUTO) 6.8 % (1.0-10.0); NEUTROPHILS % (AUTO) 75.3 % (45.0-75.0); PLATELET COUNT 191 K/UL (150-450); RED BLOOD COUNT 4.64 M/UL (4.20-5.40); RED CELL DISTRIBUTION WIDTH 11.1 % (11.6-14.8); WHITE BLOOD COUNT 5.2 K/UL (4.8-10.8)
[2018-03-06 13:54] LABS: ANION GAP 9 mmol/L (5-15); BLOOD UREA NITROGEN 11 mg/dL (7-18); CALCIUM 8.3 MG/DL (8.5-10.1); CARBON DIOXIDE 27 MMOL/L (21-32); CHLORIDE 108 MMOL/L (98-107); CREATININE 0.6 MG/DL (0.55-1.30); POTASSIUM 3.9 MMOL/L (3.5-5.1); SODIUM 144 MMOL/L (136-145)
[2018-03-06] MEDS: HYDROmorphone 1mg/ml Carpuject IVP PRN ×2 (15:18→21:40)
[2018-03-06] MEDS: D5 1/2NS w/KCl 20mEq 1,000 ML IV SCH (16:59)
[2018-03-06] MEDS: Docusate 100mg cap ORAL SCH (17:36)
[2018-03-06] MEDS: ceFAZolin sod 2 GM in D5W 110 ML IV SCH (20:20)
[2018-03-07 00:57] VITALS: BP 135/69
[2018-03-07] MEDS: ceFAZolin sod 2 GM in D5W 110 ML IV SCH (02:12)
[2018-03-07] MEDS: D5 1/2NS w/KCl 20mEq 1,000 ML IV SCH (02:12)
[2018-03-07 04:58] VITALS: BP 128/76
[2018-03-07 06:59] LABS: BASOPHILS % (AUTO) 0.1 % (0.0-2.0); EOSINOPHILS % (AUTO) 0.2 % (0.0-3.0); HEMATOCRIT 33.8 % (37.0-47.0); HEMOGLOBIN 11.2 G/DL (12.0-16.0); LYMPHOCYTES % (AUTO) 7.2 % (20.0-45.0); MEAN CORPUSCULAR VOLUME 80 FL (80-99); MONOCYTES % (AUTO) 8.7 % (1.0-10.0); NEUTROPHILS % (AUTO) 83.8 % (45.0-75.0); PLATELET COUNT 172 K/UL (150-450); RED CELL DISTRIBUTION WIDTH 11.5 % (11.6-14.8); WHITE BLOOD COUNT 9.7 K/UL (4.8-10.8)
[2018-03-07 07:10] LABS: ANION GAP 9 mmol/L (5-15); BLOOD UREA NITROGEN 7 mg/dL (7-18); CALCIUM 8.3 MG/DL (8.5-10.1); CARBON DIOXIDE 27 MMOL/L (21-32); CHLORIDE 105 MMOL/L (98-107); CREATININE 0.8 MG/DL (0.55-1.30); POTASSIUM 3.6 MMOL/L (3.5-5.1); SODIUM 140 MMOL/L (136-145)
--- NOTE | 2018-03-07 07:21 | Immediate Post-Op Evaluation ---
Immediate Post-Op Evalulation Immediate Post-Op Evalulation Procedure: Vaginal sling placement, cystocele repair Date of Evaluation: Mar 06, 2018 Time of Evaluation: 12:50 IV Fluids: 1200 Blood Products: none Estimated Blood Loss: 100 Urinary Output: n/a Blood Pressure Systolic: 110 Blood Pressure Diastolic: 58 Pulse Rate: 76 Respiratory Rate: 20 O2 Sat by Pulse Oximetry: 99 Temperature (Fahrenheit): 97.6 Pain Score (1-10): 2 Nausea: No Vomiting: No Complications none Patient Status: reacts, patent, none Hydration Status: adequate Malachi Weir MD Mar 07, 2018 07:21
--- NOTE | 2018-03-07 07:22 | 48 Hour Post Anesthesia Eval ---
Post Anesthesia Evaluation Procedure: Vaginal sling placement, cystocele repair Date of Evaluation: Mar 07, 2018 Time of Evaluation: 07:21 Blood Pressure Systolic: 132 0: 74 Pulse Rate: 68 Respiratory Rate: 20 Temperature (Fahrenheit): 97.6 O2 Sat by Pulse Oximetry: 98 Airway: patent Nausea: No Vomiting: No Pain Intensity: 2 Hydration Status: adequate Cardiopulmonary Status: stable Mental Status/LOC: patient returned to baseline Follow-up Care/Observations: n/a Post-Anesthesia Complications: none Follow-up care needed: N/A Malachi Weir MD Mar 07, 2018 07:22
[2018-03-07 08:00] VITALS: BP 120/75
[2018-03-07] MEDS: HYDROmorphone 1mg/ml Carpuject IVP PRN (08:49)
[2018-03-07] MEDS: Docusate 100mg cap ORAL SCH (08:49)
[2018-03-07] MEDS ORDERED: NITROFURANTOIN100 M2 ORAL (10:08)
[2018-03-07] MEDS ORDERED: NORCO 5-325 TA1 EACH ORAL (10:08)
[2018-03-07] MEDS ORDERED: COLACE100 MG ORAL (10:09)
[2018-03-07 12:00] VITALS: BP 129/77
[2018-03-07] MEDS ORDERED: Tubing IV Secondary IV ONE (12:44)
--- NOTE | 2018-03-07 15:45 | History and Physical Report ---
DATE OF ADMISSION: 03/06/2018 HISTORY AND PHYSICAL/INTERNAL MEDICINE CONSULTATION HISTORY OF PRESENT ILLNESS: This is a very pleasant 72-year-old female, who has undergone cystocele/rectocele repair and vaginal sling, cystoscopy. She is doing well postop day #1. She is tolerating her p.o. diet. She is complaining of mid abdominal and lower abdominal pain. The patient has essentially unremarkable past history except for bladder prolapse. PAST SURGICAL HISTORY: None. ALLERGIES: Celebrex and Levaquin. REVIEW OF SYSTEMS: Denies any headaches, hematemesis, melena, hematochezia, night sweats, or weight loss. PHYSICAL EXAMINATION: VITAL SIGNS: Blood pressure is 120/70, heart rate 84, respiratory rate 18, and she is afebrile. GENERAL: Reveals a 72-year-old female. HEENT: Unremarkable. LUNGS: Clear breath sounds bilaterally with normal heart sounds. ABDOMEN: Soft. EXTREMITIES: There is no appreciable edema. LABORATORY DATA: Lab testing shows normal CBC and BMP postop day #1 with a hemoglobin 11.2. IMPRESSION: 1. Postop day #1, status post cystocele/rectocele repair, vaginal sling and cystoscopy. 2. History of Levaquin and Celebrex allergy. DISCUSSION: 1. Continue postoperative care. 2. The patient is on regular diet. We will continue to follow carefully. Hold off on repeating laboratories tomorrow. Pain control. Await followup from Urology. Travis Ford M.D. DR: NURIA/LULÚ JOB#: [id number] CC:
--- NOTE | 2018-03-08 00:30 | Operative Note - Dictated ---
DATE OF OPERATION: 03/06/2018 NOTE: POOR AUDIO PREOPERATIVE DIAGNOSIS: Recurrent bladder prolapse. POSTOPERATIVE DIAGNOSIS: Recurrent bladder prolapse. OPERATION: 1. . 2. Repair of rectocele. 3. Repair of vaginal . 4. Cystoscopy . OPERATED BY: Cali Hopson M.D. ANESTHESIA: General. FINDINGS: Prolapsed vagina. INDICATIONS FOR PROCEDURE: The patient underwent hysterectomy and bladder suspension notably a year ago and was doing well until recently when she noticed again bulge in the vagina. On exam, she had a grade 3 cystocele and grade 2 rectocele and mild . Treatment options were explained to her in great length including all potential complications. She signed the consent. DESCRIPTION OF SURGERY: The patient was brought to the operating room, placed in lithotomy position, and prepped and draped in standard fashion. Under general anesthesia, incision was made in the anterior vagina. Bladder mucosa was from the surrounding adhesions. The bladder was pushed cephalad and retrovesical space was entered bluntly and access to the sacrospinous ligament was done. After the bladder was completely freed from the surrounding adhesions using anchor was placed in the ligament and secured with a mesh. Patch was sewn to the bladder and into the anterior vagina and lifted up. The vagina and bladder appeared quite well. Good was accomplished and a distal Sauer sutures were placed to secure the bladder. Rectocele was repaired in a standard fashion with interrupted [id number] Vicryl perirectal fascia closure. Vagina was trimmed and closed completely with a running #0 Vicryl suture. The vagina was packed. Cystoscopy was negative for perforations and both ureteral orifices were . The patient tolerated the procedure well. ESTIMATED BLOOD LOSS: Approximately 100 mL. Cali Hopson M.D. DR: LIBORIO JOB#: [id number] CC:
--- NOTE | 2018-03-08 11:10 | Discharge Summary ---
Discharge Summary Discharge Summary _ DATE OF ADMISSION: 03/06/2018 DATE OF DISCHARGE: 03/07/2018 CONSULTANTS: Dr. Travis Ford BRIEF HOSPITAL COURSE: Patient is a 72-year-old female, who is status post hysterectomy and bladder suspension, a year ago, was doing well until recently when she noticed a bulge in the vagina. On exam, she had a grade 3 cystocele and grade 2 rectocele. She was diagnosed recurrent bladder prolapse and was admitted and underwent cystocele/rectocele repair and vaginal sling/cystoscopy. Cystoscopy was negative for perforations on both ureteral orifices. She tolerated procedure well. Postoperatively she was admitted for postop care. She was given pain management. Diet was resumed. She was given therapy. She was ambulating well and was tolerating diet well. Vitals were stable she was cleared for discharge home with home health. FINAL DIAGNOSES: Recurrent bladder prolapse Status post cystocele, rectocele repair with vaginal sling and cystoscopy DISPOSITION: She was discharged home with home health. DISCHARGE MEDICATIONS: Refer to Discharge Medication List. DISCHARGE INSTRUCTIONS: Follow up wit in a week. I have been assigned to dictate discharge summary on this account, and I was not involved in the patient's management. Shannon Funez NP Mar 08, 2018 11:10
== END 2018-03-07 12:45 | disposition home health service (06) | DRG 748 ==
LOC: SDSOVERFLO 09:48 → 3E 14:39
PROC: 0JQC0ZZ Repair Pelvic Region Subcutaneous Tissue and Fascia, Open Approach (ICD-10-PCS; principal; 2018-03-06 10:45)
PROC: 0JUC0JZ Supplement of Pelvic Region Subcutaneous Tissue and Fascia with Synthetic Substitute, Open Approach (ICD-10-PCS; principal; 2018-03-06 10:45)
PROC: 0USG0ZZ Reposition Vagina, Open Approach (ICD-10-PCS; principal; 2018-03-06 10:45)
DX: N81.10 Cystocele, unspecified (principal); N81.6 Rectocele; Z90.710 Acquired absence of both cervix and uterus; Z88.1 Allergy status to other antibiotic agents; Z88.8 Allergy status to other drugs, medicaments and biological substances
CPT/HCPCS: 36415; 80048; 85025; 87081; 94003; 94150; J2250; J2405; J2765